=== PATIENT | male | born 1955 | race African-American/Black ===

== ENCOUNTER 2018-07-08 13:54 | Inpatient (IN) | payer MEDICAID ==
[~2018-07-08] VITALS: Ht 177.8 cm; Wt 89.8 kg
--- NOTE | 2018-07-08 16:34 | NUR ---
PT ARRIVED TO FLOOR VIA EMS, ORIENTED TO ROOM, CL IN REACH
[2018-07-08 17:36] LABS: BASOPHILS 0 % (0-2); EOSINOPHILS 0 % (0-7); HEMATOCRIT 38.7 % (42.0-54.0); HEMOGLOBIN 12.6 g/dL (13.5-17.5); IMMATURE GRANULOCYTES 0.3 % (0-5); MCH 32.8 pg (26.0-34.0); MCHC 32.6 g/dL (31.0-37.0); MCV 100.8 fL (80.0-100.0); NEUTROPHILS 91.7 % (40-80); PLATELET COUNT 199 10x3/uL (130-400); RBC 3.84 10x6/uL (4.20-6.10); WBC 6.9 10x3/uL (4.8-10.8)
[2018-07-08 17:55] LABS: ALBUMIN 3.2 g/dL (3.4-5.0); ANION GAP 12.4 mmol/L (8-16); BILIRUBIN - TOTAL 0.36 mg/dL (0.2-1.3); CALCIUM 8.7 mg/dL (8.5-10.1); CARBON DIOXIDE 26.7 mmol/L (21.0-32.0); CREATININE - SERUM 1.1 mg/dL (0.6-1.3); POTASSIUM - SERUM 4.1 mmol/L (3.5-5.1); PROTEIN - SERUM 7.6 g/dL (6.4-8.2)
[2018-07-08 18:04] LABS: CKMB 0.7 U/L (0.0-3.6); CREATINE KINASE 109 UL (21-232)
[2018-07-08 18:06] LABS: TROPONIN-I < 0.017 ng/mL (0.000-0.060)
[2018-07-08 20:48] VITALS: BP 159/100
[2018-07-08 23:47] LABS: CKMB 1.1 U/L (0.0-3.6); CREATINE KINASE 106 UL (21-232); TROPONIN-I < 0.017 ng/mL (0.000-0.060)
[2018-07-09 00:34] VITALS: BP 170/103
--- NOTE | 2018-07-09 02:31 | NUR ---
EYES CLOSED RESPIRATIONS WITH EASE AND UNLABORED. SR UP X2 CALL LIGHT WITHIN REACH.
[2018-07-09 04:46] VITALS: BP 164/98
[2018-07-09 05:27] VITALS: BP 159/100; BMI 28.4
[2018-07-09 06:53] LABS: BASOPHILS 0 % (0-2); EOSINOPHILS 0 % (0-7); HEMATOCRIT 37.7 % (42.0-54.0); HEMOGLOBIN 12.1 g/dL (13.5-17.5); IMMATURE GRANULOCYTES 0.4 % (0-5); LYMPHOCYTES 7.7 % (15-50); MCH 32.4 pg (26.0-34.0); MCHC 32.1 g/dL (31.0-37.0); MCV 101.1 fL (80.0-100.0); MEAN PLATELET VOLUME 10.3 fL (7.4-10.4); MONOCYTES 11.3 % (2-11); NEUTROPHILS 80.6 % (40-80); PLATELET COUNT 205 10x3/uL (130-400); RBC 3.73 10x6/uL (4.20-6.10); RDW 11.9 % (11.5-14.5)
[2018-07-09 07:10] LABS: ALBUMIN 3.2 g/dL (3.4-5.0); ALKALINE PHOSPHATASE 126 U/L (46-116); ALT (SGPT) 29 U/L (10-68); BILIRUBIN - TOTAL 0.34 mg/dL (0.2-1.3); CALC OSMOLALITY 287 mosm/kg (275-300); CALCIUM 8.7 mg/dL (8.5-10.1); CARBON DIOXIDE 26.5 mmol/L (21.0-32.0); CHLORIDE - SERUM 104 mmol/L (98-107); CKMB 1.8 U/L (0.0-3.6); CREATINE KINASE 120 UL (21-232); CREATININE - SERUM 0.9 mg/dL (0.6-1.3); GLUCOSE 236 mg/dL (74-106); POTASSIUM - SERUM 4.1 mmol/L (3.5-5.1); PROTEIN - SERUM 6.9 g/dL (6.4-8.2); SODIUM 140 mmol/L (136-145); TROPONIN-I < 0.017 ng/mL (0.000-0.060); UREA NITROGEN 16 mg/dL (7-18); eGFR NON AFRICAN AMERICAN > 90 mL/min (90-120)
[2018-07-09 07:11] LABS: WBC 12.2 10x3/uL (4.8-10.8)
[2018-07-09 08:47] LABS: APPEARANCE CLEAR (CLEAR); BILIRUBIN NEGATIVE (NEGATIVE); COLOR YELLOW (YELLOW); GLUCOSE 1000 mg/dL (NEGATIVE); KETONE NEGATIVE (NEGATIVE); NITRITE NEGATIVE (NEGATIVE); PROTEIN NEGATIVE (NEGATIVE); UROBILINOGEN NORMAL (NORMAL)
[2018-07-09 09:13] VITALS: BP 163/96
[2018-07-09 15:16] VITALS: BP 141/92
[2018-07-09 17:14] VITALS: Ht 177.8 cm; Wt 89.8 kg
[2018-07-09 20:00] VITALS: BP 165/90
--- NOTE | 2018-07-09 21:00 | NUR ---
SITTING UP IN BED, NO SIGNS OF DISTRESS. ALERT AND ORIENTED. IV LEFT AC INFUSING 1/2NS @ 50. PT HAS PRODUCTIVE COUGH, STATES HE IS COUGHING UP YELLOW AND WHITE PHLEM. PT STATES PAIN 9/10 IN BACK AND RIGHT SHOULDER. GIVEN MORPHINE ORDERS. SCDS ON. NO OTHER NEEDS OR COMPLAINTS AT THIS TIME. CL IN REACH, WILL CONTINUE TO MONITOR
[2018-07-10] VITALS (14 sets, daily range): BP systolic 130–160; BP diastolic 80–99
[2018-07-10 05:04] LABS: BASOPHILS 0.1 % (0-2); EOSINOPHILS 0 % (0-7); HEMATOCRIT 38.4 % (42.0-54.0); HEMOGLOBIN 12.6 g/dL (13.5-17.5); IMMATURE GRANULOCYTES 0.5 % (0-5); LYMPHOCYTES 11.4 % (15-50); MCH 32.8 pg (26.0-34.0); MCHC 32.8 g/dL (31.0-37.0); MEAN PLATELET VOLUME 10.1 fL (7.4-10.4); MONOCYTES 12.3 % (2-11); NEUTROPHILS 75.7 % (40-80); PLATELET COUNT 169 10x3/uL (130-400); RBC 3.84 10x6/uL (4.20-6.10); RDW 12.3 % (11.5-14.5)
[2018-07-10 05:11] LABS: WBC 7.8 10x3/uL (4.8-10.8)
[2018-07-10 05:27] LABS: ALBUMIN 3.3 g/dL (3.4-5.0); ALKALINE PHOSPHATASE 112 U/L (46-116); ALT (SGPT) 30 U/L (10-68); BILIRUBIN - TOTAL 0.63 mg/dL (0.2-1.3); CALCIUM 8.2 mg/dL (8.5-10.1); CARBON DIOXIDE 28.2 mmol/L (21.0-32.0); CHLORIDE - SERUM 99 mmol/L (98-107); CREATININE - SERUM 0.9 mg/dL (0.6-1.3); POTASSIUM - SERUM 3.6 mmol/L (3.5-5.1); PROTEIN - SERUM 7.4 g/dL (6.4-8.2); SODIUM 136 mmol/L (136-145); UREA NITROGEN 14 mg/dL (7-18); eGFR NON AFRICAN AMERICAN > 90 mL/min (90-120)
[2018-07-10 05:29] LABS: CALC OSMOLALITY 275 mosm/kg (275-300); GLUCOSE 153 mg/dL (74-106)
--- NOTE | 2018-07-10 07:14 | NUR ---
PT IS NOT ROOM AT THIS TIME. PER VP SITE NURSE PT IS AT SURGERY.
--- NOTE | 2018-07-10 10:00 | NUR ---
PT RETURNED TO ROOM VIA BED TRANSPORTED BY RECOVERY STAFF. DRESSING TO LOWER BACK WITH SMALL AMOUNT OF RED DRAINAGE NOTED. WILL MONITOR. PT IS RESTING IN BED WITH EYES OPEN. RESPIRATIONS ARE EVEN AND UNLABORED. O2 @ 7L VIA HIGH FLOW NC. BED IS IN THE LOWEST POSITION. CALL LIGHT AND BEDSIDE TABLEA RE WITHIN REACH. WILL CONT TO MONITOR
--- NOTE | 2018-07-10 10:17 | NUR ---
PT REQUESTS TO WAIT "FOR A LITTLE BIT" BEFORE DOING MORNING MEDICATIONS. PT INFORMED OF MEDICATION TYPES AND PT VERBALIZES UNDERSTANDING AND CONT TO REQUEST TO WAIT FOR MEDICATION ADMINISTRATION. BED IS IN THE LOWEST POSITION. CALL LIGHT AND BEDSIDE TABLE ARE WITHIN REACH. WILL CONT TO MONITOR.
--- NOTE | 2018-07-10 10:37 | MORECARE ---
CASE MANAGEMENT DISCHARGE SUMMARY PATIENT: ZELDA MANCERA UNIT: [id number] ADM DATE: 07/08/18 AGE: 62 : 59 SEX: M ROOM/BED: D.2215 AUTHOR: ANGELES TAO PHYSICIAN: REFERRING PHYSICIAN: SHILPA BUENROSTRO MD DATE OF SERVICE: 07/10/18 Discharge Plan Patient Name: ZELDA MANCERA [facility] [facility] 1955 Planned Disposition: Home Anticipated Discharge Date: Discharge Date: Expected LOS: Initial Reviewer: [email or web address] Initial Review Date: 07/08/2018 Generated: 07/10/18 11:37 am Patient Name: ZELDA MANCERA Page [phone] at 1037 All edits/amendments must be made on the electronic document DICTATION DATE: 07/10/18 1037 TOOL PROGRAMMER: CATHY 07/10/18 1037 RPT#: [id number] DC DATE: STATUS: ADM IN [facility] [address] [place] [address] END OF REPORT
--- NOTE | 2018-07-10 10:45 | MORECARE ---
CASE MANAGEMENT DISCHARGE SUMMARY PATIENT: BONI MANCERA UNIT: [id number] ADM DATE: 07/08/18 AGE: 62 : 59 SEX: M ROOM/BED: D.2215 AUTHOR: DINHDOC PHYSICIAN: REFERRING PHYSICIAN: SHILPA BUENROSTRO MD DATE OF SERVICE: 07/10/18 Discharge Plan Patient Name: BONI MANCERA Facility: [facility]:[place] : 1955 Planned Disposition: Home Anticipated Discharge Date: Discharge Date: Expected LOS: Initial Reviewer: [email or web address] Initial Review Date: 07/08/2018 Generated: 07/10/18 11:45 am Comments DCP- Discharge Planning Updated by [email or web address]: Kierra Rachel on 07/10/18 9:[address] Patient Name: BONI MANCERA Admission Status: Urgent Accout number: [id number] Admission Date: 07-08-2018 : 1955 Admission Diagnosis: Attending: SHILPA BUENROSTRO Current LOS: 2 Anticipated DC Date: Planned Disposition: Home Primary Insurance: MEDICAID [place] Discharge Planning Comments: CM met with patient to assess discharge planning needs. He stated that he lives with his brother in [place] where he plans to return at discharge. He is independent with his care at home. He does not use any DME and stated his home is safe to return. His brother will be his feedmobile driver home. There are 5 steps to enter in his home. He denies any HH or community needs and does not think he will need anything at DC. CM will continue to follow and assist with DC planning as needed Instrumentation Engineer: Kierra Rachel DCPIA - Discharge Planning Initial Assessment Updated by [email or web address]: Kierra Rachel on 07/10/18 10:38 am * Is the patient Alert and Oriented? Yes * How many steps to enter\exit or inside your home? * PCP Storm * Pharmacy [facility] in [place] * Preadmission Environment Home with Family * ADLs Independent * Equipment None * List name and contact numbers for known caregivers / representatives who currently or will assist patient after discharge: Boni (son) [phone] * Verbal permission to speak to the caregivers and representatives has been obtained from the patient. N/A * Community resources currently utilized None * Additional services required to return to the preadmission environment? No * Can the patient safely return to the preadmission environment? Yes * Has this patient been hospitalized within the prior 30 days at any hospital? No Last DP export: 07/10/18 9:37 am Patient Name: BONI MANCERA Page [phone] at 1045 All edits/amendments must be made on the electronic document DICTATION DATE: 07/10/18 1045 CEMENTER MACHINE JOINER: CATHY 07/10/18 1045 RPT#: [id number] DC DATE: STATUS: ADM IN [facility] [address] [place] [address] END OF REPORT
--- NOTE | 2018-07-10 17:06 | NUR ---
Rehab Note- Acute Inpatient Rehab prescreen order received. The patient has Medicaid and does not have Inpatient Acute Rehab benefits. Thank you for this referral! Monica Shukla RN Clinical Liaison, [facility] Rehab
--- NOTE | 2018-07-10 17:45 | NUR ---
PT INFORMED OF I,PORTANCE OF STAYING ON FLOOR TO BE CLOSELY MONITORED AND EDUCATED ON O2 SATURATIONS AND LEVEL OF O2 RECEIVING AND BECOMING HYPOXIC. PT VERBALIZES UNDERSTANDING BUT STATES THAT HE IS "GOING OUTSIDE ONE WAY OR ANOTHER". PT SIGNED RELEASE OF RESPONSIBILITY WAIVER. WAIVER PLACED IN PT CHART.
--- NOTE | 2018-07-10 19:00 | NUR ---
REPORT RECEIVED AND CARE OF PT ASSUMED. PT LYING IN LOW MILLER'S POSITION WATCHING TV. IV IN LEFT AC PATENT WITH 1/2 NS INFUSING AT 50 ML / HR. DRESSING ON LOWER BACK CLEAN AND DRY. O2 IN USE VIA NC AT 7L. WILL MONITOR FOR NEEDS.
--- NOTE | 2018-07-10 20:38 | NUR ---
HS MEDICATIONS GIVEN. FSBGS 214 THIS CHECK REQUIRING COVERAGE WITH 4 UNITS OF INSULIN PER SLIDING SCALE.
--- NOTE | 2018-07-10 20:45 | NUR ---
GAVE HS SNACK: CHICKEN NOODLE SOUP AND CRACKERS, AND ORANGE SHERBET.
--- NOTE | 2018-07-10 22:15 | NUR ---
TOOK PT'S DIRTY CLOTHES TO REHAB TO WASH PER HIS REQUEST.
--- NOTE | 2018-07-11 00:03 | NUR ---
GAVE MORPHINE 1 MG IVP PER PT REQUEST FOR INCISIONAL / BACK PAIN. WILL MONITOR FOR EFFECTIVENESS. SIDE RAILS UP X2 FOR SAFETY.
--- NOTE | 2018-07-11 00:10 | NUR ---
GAVE PT TURKEY SANDWICH AND DIET SODA PER REQUEST.
--- NOTE | 2018-07-11 01:03 | NUR ---
CLOTHES RETURNED TO ROOM FROM LAUNDRY...FOLDED AND IN A BELONGINGS BAG. PT AWARE AND KNOWS WHERE THEY ARE.
[2018-07-11 03:38] VITALS: BP 143/90
[2018-07-11 06:19] LABS: BASOPHILS 0.2 % (0-2); EOSINOPHILS 0.2 % (0-7); HEMATOCRIT 35.3 % (42.0-54.0); HEMOGLOBIN 11.1 g/dL (13.5-17.5); IMMATURE GRANULOCYTES 0.2 % (0-5); LYMPHOCYTES 15.4 % (15-50); MCH 32.4 pg (26.0-34.0); MCHC 31.4 g/dL (31.0-37.0); MEAN PLATELET VOLUME 10.2 fL (7.4-10.4); PLATELET COUNT 152 10x3/uL (130-400); RBC 3.43 10x6/uL (4.20-6.10); RDW 12.3 % (11.5-14.5); WBC 6.6 10x3/uL (4.8-10.8)
[2018-07-11 06:21] LABS: MCV 102.9 fL (80.0-100.0)
[2018-07-11 06:47] LABS: ALBUMIN 2.8 g/dL (3.4-5.0); ALKALINE PHOSPHATASE 96 U/L (46-116); ALT (SGPT) 31 U/L (10-68); BILIRUBIN - TOTAL 0.48 mg/dL (0.2-1.3); CALC OSMOLALITY 279 mosm/kg (275-300); CALCIUM 7.9 mg/dL (8.5-10.1); CARBON DIOXIDE 28.8 mmol/L (21.0-32.0); CHLORIDE - SERUM 102 mmol/L (98-107); CREATININE - SERUM 0.8 mg/dL (0.6-1.3); GLUCOSE 152 mg/dL (74-106); PROTEIN - SERUM 6.3 g/dL (6.4-8.2); SODIUM 138 mmol/L (136-145); UREA NITROGEN 14 mg/dL (7-18); eGFR NON AFRICAN AMERICAN > 90 mL/min (90-120)
--- NOTE | 2018-07-11 07:38 | NUR ---
SITTING UP IN BED, HOB AT 80 DEGREES, EVEN UNLABORED BREATHING, 7LPM HIGH FLOW, LEFT AC PATENT, 1/2NS AT 50ML/HR. SCD'S ON AND IN OPERATION, DENIES ANY CURRENT NEEDS OR DISCOMFORTS, BED LOWERED AND LOCKED, CALL LIGHT WITHIN REACH. CPOC
[2018-07-11 09:07] VITALS: BP 138/88
--- NOTE | 2018-07-11 09:53 | NUR ---
PATIENT STATES PAIN IS BEING UNCONTROLLED, ADMINISTERED PRN MORPHINE VIA IV, BUT STATES NO RELIEF. PT STATES HE TAKES HYDROCODONE 10 AT HOME AND IT CONTROLS HIS PAIN. DENIES ANY OTHER NEEDS. BED LOWERE AND LOCKED, CALL LIGHT WITHIN REACH. CPOC
--- NOTE | 2018-07-11 10:24 | NUR ---
PRN NORCO 10/325 ADMINISTERED FOR PAIN LEVEL 910. SPOKE WITH DR. DIXON, IF PT PAIN BECOMES CONTROLLED WE WILL WORK ON A POSSIBLE DISCHARGE. NO BOWEL MOVEMENT SINCE LAST SATURDAY, RECIEVING STOOL SOFTNER DAILY, ADMINISTERED MIRALAX PER ORDER. PT STATED NO TO DO SUPP UNTIL LATER. WILL CONTINUE TO MONTIOR. DENIES ANY OTHER NEEDS OR DISCOMFORTS, BED LOWERED AND LOCKED, CALL LIGHT WITHIN REACH. CPOC
--- NOTE | 2018-07-11 12:31 | OP ---
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 PROCEDURES: Lumbar laminotomy, medial facetectomy and foraminotomy L4-L5 on the right with discectomy. SURGEON: Fabiola Mead MD. DESCRIPTION OF TECHNIQUE: After induction of general endotracheal anesthesia, the patient was rolled prone on a Glen frame. Lumbar spine was prepped and draped in usual sterile fashion. Fluoroscopic x-ray and spinal needle localized the L4-L5 interspace on the right side. After infiltration of 1:100,000 epinephrine and 1% lidocaine, a stab incision was created with a #11 blade. Series of dilators was used to advance a METRx retractor at the L4-L5 interspace on the right side. Level was confirmed with fluoroscopic x-ray. Laminotomy, medial facetectomy, and foraminotomy were carried out at L4-L5 on the right under microscopic illumination. Hypertrophied ligamentum flavum was removed with Cloward rongeurs. Following this, the L4 and L5 nerve roots were identified well. There was an obvious free fragment disc herniation compressing the right L5 nerve root. This was removed in a piecemeal fashion with pituitary rongeurs. The disc material was removed from the disc space. Following this, the L4 and L5 nerve roots were completely decompressed. Meticulous hemostasis was maintained throughout the wound. The METRx retractor was removed. The fascia was closed with 2-0 Vicryl suture, the subdermal layer was closed with 3-0 Vicryl suture. The skin was closed with funmilayo. A sterile dressing was applied to the wound. The patient was awakened in good condition and taken to recovery. All counts were reported as correct. Estimated blood loss was minimal. TRANSINT:[id number] Voice Confirmation ID: [id number] DOCUMENT ID: [id number] FABIOLA MEAD MD at 1231 CC: [id number] DICTATION DATE: 07/11/18 1040 GREENSMAN: 07/11/18 1211 ADM IN [address] [address]
[2018-07-11 13:53] VITALS: BP 126/86
[2018-07-11 16:00] VITALS: BP 163/99
--- NOTE | 2018-07-11 19:00 | NUR ---
BEDSIDE SHIFT REPORT RECEIVED AND CARE OF PT ASSUMED. PT LYING IN LOW MILLER'S POSITION WATCHING TV. IV IN LEFT FA PATENT WITH 1/2 NS INFUISNG AT 50 ML / HR. IV IN LEFT AC SALINE LOCKED. O2 IN USE VIA HI FLOW NC AT 6L. WILL MONITOR FOR NEEDS. CALL LIGHT WITHIN REACH.
--- NOTE | 2018-07-11 19:30 | NUR ---
RECEIVED IN REPORT THAT PT REFUSED TO HAVE IN AND OUT CATH PERFORMED FOR ORDERED URINE CULTURE.
[2018-07-11 19:34] VITALS: BP 148/98
--- NOTE | 2018-07-11 20:15 | NUR ---
GAVE 240 ML OF PRUNE JUICE TO AID IN [place] OF CONSTIPATION.
--- NOTE | 2018-07-11 20:54 | NUR ---
HS MEDICATIONS GIVEN. FSBS 128 THIS CHECK REQUIRING NO COVERAGE VIA SLIDING SCALE.
[2018-07-11 23:35] VITALS: BP 133/78
--- NOTE | 2018-07-11 23:50 | NUR ---
GAVE NORCO 10 FOR PAIN AND ELEVATED TEMP. ENCOURAGED INCREASED USE OF INCENTIVE INSPIROMETER. WILL CONTINUE TO MONITOR FOR NEEDS.
[2018-07-12 04:00] VITALS: BP 137/87
[2018-07-12 06:18] LABS: BASOPHILS 0.2 % (0-2); EOSINOPHILS 0.2 % (0-7); HEMATOCRIT 36.1 % (42.0-54.0); HEMOGLOBIN 11.5 g/dL (13.5-17.5); IMMATURE GRANULOCYTES 0.4 % (0-5); LYMPHOCYTES 15.7 % (15-50); MCH 32.7 pg (26.0-34.0); MCHC 31.9 g/dL (31.0-37.0); MCV 102.6 fL (80.0-100.0); MEAN PLATELET VOLUME 10.3 fL (7.4-10.4); MONOCYTES 15.5 % (2-11); PLATELET COUNT 149 10x3/uL (130-400); RBC 3.52 10x6/uL (4.20-6.10); RDW 12.3 % (11.5-14.5); WBC 5.5 10x3/uL (4.8-10.8)
[2018-07-12 07:05] LABS: ALBUMIN 2.8 g/dL (3.4-5.0); ALKALINE PHOSPHATASE 99 U/L (46-116); ALT (SGPT) 33 U/L (10-68); BILIRUBIN - TOTAL 0.75 mg/dL (0.2-1.3); CALC OSMOLALITY 267 mosm/kg (275-300); CARBON DIOXIDE 30.2 mmol/L (21.0-32.0); CHLORIDE - SERUM 97 mmol/L (98-107); CREATININE - SERUM 0.8 mg/dL (0.6-1.3); GLUCOSE 121 mg/dL (74-106); POTASSIUM - SERUM 3.9 mmol/L (3.5-5.1); PROTEIN - SERUM 6.7 g/dL (6.4-8.2); SODIUM 134 mmol/L (136-145); eGFR NON AFRICAN AMERICAN > 90 mL/min (90-120)
[2018-07-12 07:11] LABS: UREA NITROGEN 10 mg/dL (7-18)
--- NOTE | 2018-07-12 07:50 | NUR ---
AWAKE AND ALERT, SHALLOW SHORT BREATHING, DENIES SOB, 02 PRESNT AT 3LPM VIA NC, DENIES ANY CURRENT NEEDS, BED LOWERED AND LOCKED, CALL LIGHT WITHIN REACH. CPOC
[2018-07-12 08:39] VITALS: BP 126/83
--- NOTE | 2018-07-12 10:42 | NUR ---
PATIENT RESTING IN BED, DENIES NEEDS AT THIS TIME, CL IN REACH
[2018-07-12 12:00] VITALS: BP 123/63
--- NOTE | 2018-07-12 14:03 | NUR ---
URINE SPECIMEN COLLECTED WITH IN AND OUT CATH, TOLERATED PROCEDURE WELL, DENIES ANY NEEDS OR DISCOMFORTS, BED LOWERED AND LOCKED, CALL LIGHT WITHIN REACH. CPOC
[2018-07-12 16:00] VITALS: BP 116/74
[2018-07-12 17:39] VITALS: BP 162/86
--- NOTE | 2018-07-12 18:16 | NUR ---
APPLIED HEAT PACK TO RIGHT SHOULDER D/T C/O DISCOMFORT, DENIES ANY OTHER NEEDS OR DISCOMFORTS, BED LOWERED AND LOCKED, CALL LIGHT WITHIN REACH. CPOC
--- NOTE | 2018-07-12 18:45 | NUR ---
SITTING UP RIGHT IN BED, SHORT SHALLOW BREATHS, CONTINUES ON 3LPM VIA NC, DENIES ANY CURRENT NEEDS OR DISCOMFORTS, BED LOWERED AND LOCKED CALL LIGHT WITHIN REACH. CPOC
--- NOTE | 2018-07-12 19:10 | NUR ---
BEDSIDE SHIFT REPORT RECEIVED AND CARE OF PT ASSUMED. PT LYING IN HIGH MILLER'S POSITION WITH EYES CLOSED. IV IN LEFT FA PATENT WITH 1/2 NS INFUSING AT 50 ML / HR. WILL MONITOR FOR NEEDS.
[2018-07-12 20:00] VITALS: BP 121/80
--- NOTE | 2018-07-12 20:22 | NUR ---
HS MEDICAITONS GIVEN TO INCLUDE NORCO 10/325 PO PER REQUEST FOR PAIN. FSBS THIS CHECK IS 159 REQUIRING COVERAGE WITH 2 UNITS OF INSULIN PER SLIDING SCALE. WILL CONTINUE TO MONITOR FOR NEEDS. CALL LIGHT WITHIN REACH.
--- NOTE | 2018-07-12 21:00 | NUR ---
PT HAS X2 DESSERTS FROM DINNER TRAY ON BEDSIDE TABLE FOR HS SNACK.
[2018-07-13] VITALS: BP 121/76
[2018-07-13 04:00] VITALS: BP 126/69
[2018-07-13 05:53] LABS: BASOPHILS 0.2 % (0-2); EOSINOPHILS 0.6 % (0-7); HEMATOCRIT 34.4 % (42.0-54.0); HEMOGLOBIN 10.8 g/dL (13.5-17.5); IMMATURE GRANULOCYTES 0.4 % (0-5); LYMPHOCYTES 24.3 % (15-50); MCH 32.1 pg (26.0-34.0); MCHC 31.4 g/dL (31.0-37.0); MCV 102.4 fL (80.0-100.0); MONOCYTES 17.4 % (2-11); NEUTROPHILS 57.1 % (40-80); PLATELET COUNT 145 10x3/uL (130-400); RBC 3.36 10x6/uL (4.20-6.10); RDW 12.2 % (11.5-14.5); WBC 5.3 10x3/uL (4.8-10.8)
[2018-07-13 06:36] LABS: ALBUMIN 2.5 g/dL (3.4-5.0); ALKALINE PHOSPHATASE 91 U/L (46-116); ALT (SGPT) 31 U/L (10-68); BILIRUBIN - TOTAL 0.57 mg/dL (0.2-1.3); CALC OSMOLALITY 271 mosm/kg (275-300); CALCIUM 7.8 mg/dL (8.5-10.1); CARBON DIOXIDE 29.9 mmol/L (21.0-32.0); CHLORIDE - SERUM 97 mmol/L (98-107); CREATININE - SERUM 0.8 mg/dL (0.6-1.3); GLUCOSE 162 mg/dL (74-106); POTASSIUM - SERUM 3.9 mmol/L (3.5-5.1); PROTEIN - SERUM 6.3 g/dL (6.4-8.2); SODIUM 134 mmol/L (136-145); eGFR NON AFRICAN AMERICAN > 90 mL/min (90-120)
[2018-07-13 06:37] LABS: UREA NITROGEN 13 mg/dL (7-18)
[2018-07-13 07:55] VITALS: BP 139/84
--- NOTE | 2018-07-13 07:59 | NUR ---
SITTING UP RIGHT, 02 PRESENT AT 3LPM, EVEN UNLABORED BREATHING, PAIN OF 9/10 IN RIGHT SHOULDER, DRESSING CLEAN AND DRY AND INTACT ON LUMBAR SPINE, DENIES ANY CURRENT NEEDS OR DISCOMFORTS, BED LOWERED AND LOCKED, CALL LIGHT WITHIN REACH. CPOC
--- NOTE | 2018-07-13 08:40 | NUR ---
PATIENT RESTING IN BED, DENIES NEEDS, CL IN REACH
--- NOTE | 2018-07-13 09:56 | NUR ---
IV IN LEFT AC AND LEFT FOREARM INFILTRATED. REMOVED BOTH IVS, CATHETER TIP INTACT X2. BANDAGE ON LOWER BACK REMOVED AND REPLACE, INCISION SITE, CLEAN, NO DRAINAGE, NO REDNESS, NO SWELLING, RECIVED FULL SHOWER, LINEN CHANGED, GOWN CHANGED, BED LOWERED AND LOCKED, CALL LIGHT WITHIN REACH. CPOC
--- NOTE | 2018-07-13 11:26 | NUR ---
PATIENT WALKED DOWNSTAIRS WITH A FRIEND, WHEN HE RETURNED HE COMPLAINED ABOUT COMPLETE NUMBESS IN RIGHT ARM, CALLED DR. DIXON, HE HAS ALREADY SPOKEN WITH PT IN REGARDS TO FIXING THE ISSUES WITH HIS ARM AT A LATER DATE, HE IS OKAY WITH PATIENT DISCHARGING HOME FROM A SURGICAL STAND POINT.
[2018-07-13 13:00] VITALS: BP 110/78
--- NOTE | 2018-07-13 14:41 | NUR ---
IV RESTARTED IN RIGHT FOREARM WITH 22 G, 1ST ATTEMPT, DENIES ANY DISCOMFORT TO SIGHT, BED LOWERED AND LOCKED, CALL LIGHT WITHIN REACH. CPOC
--- NOTE | 2018-07-13 18:18 | NUR ---
ADMINISTERED 20MG SUPP D/T NO BM SINCE LAST SATURDAY, OFFERED THE TAP WATER ENEMA AND HE DECIDED HE'D RATHER TRY THE SUPP. 3LPM O2 VIA NC, EVEN UNLABORED BREATHING, DENIES ANY CURRENT DISCOMFORTS OR NEEDS, BED LOWERED AND LOCKED CALL LIGHT WITHIN REACH. CPOC
--- NOTE | 2018-07-13 19:00 | NUR ---
REPORT RECEIVED AND CARE OF PT ASSUMED. PT UP AMBULATING IN THE HALLWAY AT THIS TIME. IV IN RIGHT FA SALINE LOCKED. WILL MONITOR FOR NEEDS.
[2018-07-13 20:00] VITALS: BP 116/64
--- NOTE | 2018-07-13 20:33 | NUR ---
HS MEDICATIONS GIVEN. FSBS 156 THIS CHECK REQUIRING NO COVERAGE PER SLIDING SCALE. ADDED NORCO 10 PO TO HS MEDICAITONS FOR C/O PAIN AT LEVEL 7/10. WILL MONITOR FOR EFFECTIVENESS. CALL LIGHT WITHIN REACH.
--- NOTE | 2018-07-14 03:15 | NUR ---
GAVE NORCO 10/325 PO PER PT REQUEST FOR PAIN, PER PRN ORDERS. WILL MONITOR FOR EFFECTIVENESS.
[2018-07-14 04:00] VITALS: BP 154/84
--- NOTE | 2018-07-14 04:00 | NUR ---
TURNED OFF IV FLUIDS PER PT REQUEST.
[2018-07-14 04:49] LABS: EOSINOPHILS 2.2 % (0-7); HEMATOCRIT 33.9 % (42.0-54.0); IMMATURE GRANULOCYTES 0.8 % (0-5); LYMPHOCYTES 26.5 % (15-50); MCH 32.8 pg (26.0-34.0); MCHC 32.4 g/dL (31.0-37.0); MCV 101.2 fL (80.0-100.0); MEAN PLATELET VOLUME 10.1 fL (7.4-10.4); MONOCYTES 18.1 % (2-11); NEUTROPHILS 51.4 % (40-80); PLATELET COUNT 136 10x3/uL (130-400); RBC 3.35 10x6/uL (4.20-6.10); WBC 5.1 10x3/uL (4.8-10.8)
[2018-07-14 05:12] LABS: ALBUMIN 2.5 g/dL (3.4-5.0); ALKALINE PHOSPHATASE 94 U/L (46-116); ALT (SGPT) 34 U/L (10-68); BILIRUBIN - TOTAL 0.66 mg/dL (0.2-1.3); CALC OSMOLALITY 274 mosm/kg (275-300); CALCIUM 8.1 mg/dL (8.5-10.1); CARBON DIOXIDE 31.2 mmol/L (21.0-32.0); CHLORIDE - SERUM 101 mmol/L (98-107); CREATININE - SERUM 0.8 mg/dL (0.6-1.3); GLUCOSE 135 mg/dL (74-106); POTASSIUM - SERUM 3.8 mmol/L (3.5-5.1); PROTEIN - SERUM 6.4 g/dL (6.4-8.2); SODIUM 137 mmol/L (136-145); UREA NITROGEN 11 mg/dL (7-18); eGFR NON AFRICAN AMERICAN > 90 mL/min (90-120)
[2018-07-14] MEDS ORDERED: MIRALAX17 GM PO (10:22)
[2018-07-14] MEDS ORDERED: NORCO-10 PO (10:22)
[2018-07-14] MEDS ORDERED: GLUCOPHAGE500 MG PO (10:23)
--- NOTE | 2018-07-14 11:49 | MORECARE ---
CASE MANAGEMENT DISCHARGE SUMMARY PATIENT: BONI MANCERA UNIT: [id number] ADM DATE: 07/08/18 AGE: 62 : 59 SEX: M ROOM/BED: D.2215 AUTHOR: DINHDOC PHYSICIAN: REFERRING PHYSICIAN: SHILPA BUENROSTRO MD DATE OF SERVICE: 07/14/18 Discharge Plan Patient Name: BONI MANCERA Facility: [facility]:[place] : 1955 Planned Disposition: Home Anticipated Discharge Date: Discharge Date: Expected LOS: Initial Reviewer: [email or web address] Initial Review Date: 07/08/2018 Generated: 07/14/18 12:49 pm Comments DCP- Discharge Planning Updated by [email or web address]: Kierra Rachel on 07/14/18 10:[address] Gave patient a Contour Next Blood Glucose monitoring System. No other needs identified. DCP- Discharge Planning Updated by [email or web address]: Kierra Rachel on 07/10/18 9:[address] Patient Name: BONI MANCERA Admission Status: Urgent Accout number: [id number] Admission Date: 07-08-2018 : 1955 Admission Diagnosis: Attending: SHILPA BUENROSTRO Current LOS: 2 Anticipated DC Date: Planned Disposition: Home Primary Insurance: MEDICAID [place] Discharge Planning Comments: CM met with patient to assess discharge planning needs. He stated that he lives with his brother in [place] where he plans to return at discharge. He is independent with his care at home. He does not use any DME and stated his home is safe to return. His brother will be his personal driver home. There are 5 steps to enter in his home. He denies any HH or community needs and does not think he will need anything at DC. CM will continue to follow and assist with DC planning as needed Reach Truck Operator: Kierra Rachel DCPIA - Discharge Planning Initial Assessment Updated by [email or web address]: Kierra Rachel on 07/10/18 10:38 am * Is the patient Alert and Oriented? Yes * How many steps to enter\exit or inside your home? * PCP [place] * Pharmacy [facility] in [place] * Preadmission Environment Home with Family * ADLs Independent * Equipment None * List name and contact numbers for known caregivers / representatives who currently or will assist patient after discharge: Boni (son) [phone] * Verbal permission to speak to the caregivers and representatives has been obtained from the patient. N/A * Community resources currently utilized None * Additional services required to return to the preadmission environment? No * Can the patient safely return to the preadmission environment? Yes * Has this patient been hospitalized within the prior 30 days at any hospital? No Last DP export: 07/10/18 9:45 am Patient Name: BONI MANCERA Page [phone] at 1149 All edits/amendments must be made on the electronic document DICTATION DATE: 07/14/181147 CARD DEALER: CATHY 07/14/181147 RPT#: [id number] DC DATE: STATUS: ADM IN [facility] [address] [place] [address] END OF REPORT
[2018-07-14 12:08] VITALS: BP 187/81
--- NOTE | 2018-07-14 13:23 | NUR ---
IV REMOVED FROM LEFT FA WITH NO REDNESS OR EDEMA. DISCHARGE INSTRUCTIONS GIVEN INCLUDING NEW GLUCOMETER AND MEDICATIONS, PATIENT AMBULATED WITH FRIEND TO PRIVATE CAR
--- NOTE | 2018-07-18 14:47 | MORECARE ---
CASE MANAGEMENT DISCHARGE SUMMARY PATIENT: BONI MANCERA UNIT: [id number] ADM DATE: 07/08/18 AGE: 62 : 59 SEX: M ROOM/BED: D.2215 AUTHOR: DINHDOC PHYSICIAN: REFERRING PHYSICIAN: SHILPA BUENROSTRO MD DATE OF SERVICE: 07/18/18 Discharge Plan Patient Name: BONI MANCERA Facility: [facility]:[place] : 1955 Planned Disposition: Home Anticipated Discharge Date: Discharge Date: 07/14/2018 Expected LOS: 0 Initial Reviewer: [email or web address] Initial Review Date: 07/08/2018 Generated: 07/18/18 3:46 pm Comments DCP- Discharge Planning Updated by [email or web address]: Kierra Racehl on 07/14/18 10:[address] Gave patient a Contour Next Blood Glucose monitoring System. No other needs identified. DCP- Discharge Planning Updated by [email or web address]: Kierra Rachel on 07/10/18 9:[address] Patient Name: BONI MANCERA Admission Status: Urgent Accout number: [id number] Admission Date: 07-08-2018 : 1955 Admission Diagnosis: Attending: SHILPA BUENROSTRO Current LOS: 2 Anticipated DC Date: Planned Disposition: Home Primary Insurance: MEDICAID [place] Discharge Planning Comments: CM met with patient to assess discharge planning needs. He stated that he lives with his brother in [place] where he plans to return at discharge. He is independent with his care at home. He does not use any DME and stated his home is safe to return. His brother will be his construction driver home. There are 5 steps to enter in his home. He denies any HH or community needs and does not think he will need anything at DC. CM will continue to follow and assist with DC planning as needed It Help Desk Technician: Kierra Rachel DCPIA - Discharge Planning Initial Assessment Updated by [email or web address]: Kierra Rachel on 07/10/18 10:38 am * Is the patient Alert and Oriented? Yes * How many steps to enter\exit or inside your home? * PCP Storm * Pharmacy [facility] in [place] * Preadmission Environment Home with Family * ADLs Independent * Equipment None * List name and contact numbers for known caregivers / representatives who currently or will assist patient after discharge: Boni (son) [phone] * Verbal permission to speak to the caregivers and representatives has been obtained from the patient. N/A * Community resources currently utilized None * Additional services required to return to the preadmission environment? No * Can the patient safely return to the preadmission environment? Yes * Has this patient been hospitalized within the prior 30 days at any hospital? No Last DP export: 07/14/18 10:49 a Patient Name: BONI MANCERA Page 17675 at 1447 All edits/amendments must be made on the electronic document DICTATION DATE: 07/18/181445 COMPUTER LAB PARA PROFESSIONAL: CATHY 07/18/181445 RPT#: [id number] DC DATE:07/14/18 STATUS: DIS IN [facility] [address] [place] [address] END OF REPORT
[2018-07-30] MEDS ORDERED: HYDROCODON-ACE1 EA10 PO (14:10)
== END 2018-07-14 13:30 | disposition home or self-care (01) | DRG 516 ==
LOC: D.MS 13:54
PROVIDERS: Family Medicine; Neurological Surgery; ADMIT Internal Medicine Nephrology
PROC: 01NB0ZZ Release Lumbar Nerve, Open Approach (ICD-10-PCS; principal; 2018-07-10 07:00)
DX: M51.16 Intervertebral disc disorders with radiculopathy, lumbar region (principal); F17.213 Nicotine dependence, cigarettes, with withdrawal; E11.65 Type 2 diabetes mellitus with hyperglycemia; I10 Essential (primary) hypertension

== ENCOUNTER 2018-07-31 10:04 | Day surgery (SDC) | payer MEDICAID ==
[~2018-07-31] VITALS: Ht 179.1 cm; Wt 86.8 kg
--- NOTE | ~2018-07-31 | OP ---
PATIENT NAME: ZELDA MANCERA MEDICAL RECORD: [id number] :[birth year] LOCATION:[place] ADMISSION DATE: SURGEON: FABIOLA MEAD MD DATE OF OPERATION: 07/31/2018 PREOPERATIVE DIAGNOSES: Osteophyte formation and disc herniation at C6-7 and C7-T1 with cervical radiculopathy at C7-C8. PROCEDURE: Anterior cervical discectomy and fusion at C6-7 and C7-T1 with separate anterior cervical plate and screws, PEEK interbody cages at C6-7 and C7-T1, Celina bone stem cells, removal of osteophytes. SURGEON: Fabiola Mead MD DESCRIPTION OF TECHNIQUE: After induction of general endotracheal anesthesia, the patient was positioned supine on the operating table. The neck was prepped and draped in usual sterile fashion. Fluoroscopic x-ray and freer localized the C6-C7 interspace. A transverse skin incision was carried out from the midline to the sternocleidomastoid muscle. The platysma was divided with Bovie cautery. Using blunt and sharp dissection with Metzenbaum scissors, I proceeded in avascular plane medial to the carotid sheath. The C6-7 interspace was identified with fluoroscopic x-ray and the spinal needle. The longus colli muscles were elevated from bodies of C6, C7, and T1. A self-retaining retractor was then placed deep to the longus colli muscles. [place] distracting pins were placed by C6, C7, and T1. The disc space was incised at each and the disc material was removed with pituitary rongeurs and curettes. Osteophytes were removed anteriorly at C6-7 and C7-T1 with Adson rongeurs. Under microscope, a Midas-Winston drill was used to remove osteophytes on both sides of C6-7 and C7-T1. Posterior longitudinal ligament was removed at both levels with Cloward rongeurs. Following this, the dura was decompressed well. A PEEK interbody cage was filled with bone stem cells and placed in each interspace under distraction with [place] distracting pins. A separate anterior cervical plate and screws used to span the C6-7 and C7-T1 interspace. Self-drilling screws were placed through the holes of the plate. Locking cams were tightened down over the screw heads. Good position of the hardware was confirmed with fluoroscopic x-ray. Meticulous hemostasis was maintained throughout the wound and was irrigated with copious amounts of Ancef irrigant solution. The platysma was closed with interrupted 3-0 Vicryl suture, the subdermal layer was closed with interrupted 3-0 Vicryl suture, the skin was reapproximated with Steri-Strips and benzoin. A sterile dressing was applied to the wound. The patient was awakened in good condition, taken to recovery. All counts were reported as correct. Estimated blood loss was minimal. TRANSINT:[id number] Voice Confirmation ID: [id number] DOCUMENT ID: [id number] FABIOLA MEAD MD CC: [id number] DICTATION DATE: 08/13/18729 LEAD SUPPLY WORKER: 08/13/18 0838 [facility] [place] 08/01/[address] [address]
[~2018-07-31 10:04] MED LIST: GLUCOPHAGE500 MG PO; HYDROCODON-ACE1 EA10 PO; MIRALAX17 GM PO; NORCO-10 PO
[2018-07-31 10:20] LABS: BASOPHILS 0.6 % (0-2); EOSINOPHILS 3.7 % (0-7); HEMATOCRIT 41.3 % (42.0-54.0); HEMOGLOBIN 13.3 g/dL (13.5-17.5); IMMATURE GRANULOCYTES 0.3 % (0-5); LYMPHOCYTES 30.9 % (15-50); MCH 32.8 pg (26.0-34.0); MCHC 32.2 g/dL (31.0-37.0); MCV 101.7 fL (80.0-100.0); MEAN PLATELET VOLUME 9.6 fL (7.4-10.4); MONOCYTES 12.5 % (2-11); RBC 4.06 10x6/uL (4.20-6.10); RDW 12.1 % (11.5-14.5); WBC 6.2 10x3/uL (4.8-10.8)
[2018-07-31 10:21] LABS: PLATELET COUNT 278 10x3/uL (130-400)
[2018-07-31 10:30] LABS: APTT 33.1 SECONDS (22.8-39.4); INR 1.01 (0.85-1.17); PROTIME 12.8 SECONDS (11.6-15.0)
[2018-07-31 10:33] LABS: CALC OSMOLALITY 282 mosm/kg (275-300); CALCIUM 8.6 mg/dL (8.5-10.1); CARBON DIOXIDE 26.7 mmol/L (21.0-32.0); CHLORIDE - SERUM 106 mmol/L (98-107); CREATININE - SERUM 0.8 mg/dL (0.6-1.3); GLUCOSE 119 mg/dL (74-106); POTASSIUM - SERUM 4.2 mmol/L (3.5-5.1); SODIUM 141 mmol/L (136-145); UREA NITROGEN 16 mg/dL (7-18); eGFR NON AFRICAN AMERICAN > 90 mL/min (90-120)
[2018-07-31 13:28] VITALS: BP 140/97; BMI 27.0
--- NOTE | 2018-07-31 18:19 | NUR ---
PT RECEIVED. VSS. PT O2 VIA NC 3L O2 SAT 100% BEDSIDE REPORT RECEIVED FROM OR. PT DENIES NEEDS WILL CONTINUE TO MONITOR
[2018-07-31 18:21] VITALS: BP 143/84; Ht 179.1 cm; Wt 86.8 kg
--- NOTE | 2018-07-31 19:00 | NUR ---
RECIEVED PT FROM DAY SHIFT. IN BED IN LOW FOWLERS POSITION. ALERT AND ORIENTED X4. RESPIRATIONS EVEN AND UNLABORED. VS STABLE AND AFEBRILE. NO VISUAL CUES OF DISTRESS NOTED. O2 @ 3L NC. SAT 96%. DENIES ANY OTHER NEEDS AT THIS TIME. BED LOW. SIDE RAILS UP X2. CALL LIGHT IN REACH. WILL CONTINUE TO MONITOR.
[2018-08-01 01:00] VITALS: BP 149/105
[2018-08-01 02:00] VITALS: BP 141/101
[2018-08-01 03:00] VITALS: BP 140/95
[2018-08-01 04:00] VITALS: BP 145/101
[2018-08-01 05:00] VITALS: BP 138/89
[2018-08-01 06:00] VITALS: BP 145/96
--- NOTE | 2018-08-01 07:16 | NUR ---
REPORT RECEIVED. ASSESSMENT COMPLETE PER FLOW SHEET. VSS. NO NEW CHANGES WILL CONTINUE TO MONITOR
--- NOTE | 2018-08-01 08:50 | NUR ---
DR DIXON AT BEDSIDE STATED PT WOULD NOT HAVE ANY PRESCRIPTIONS R/T BEING WRITTEN BEFORE PROCEDURE AND FILLED BEFORE ADMISSION.
--- NOTE | 2018-08-01 09:17 | NUR ---
PT WALKED TO VEHICLE WITH BROTHER. LEFT WITH ALL BELONGINGS.
== END 2018-08-01 09:20 | disposition home or self-care (01) ==
LOC: D.OPS 10:04 → D.ICU 18:02 → D.OPS 08-01 09:20
PROVIDERS: Anesthesiology; ATTEND Neurological Surgery
DX: M50.123 Cervical disc disorder at C6-C7 level with radiculopathy (principal); M50.13 Cervical disc disorder with radiculopathy, cervicothoracic region; M25.78 Osteophyte, vertebrae; Z01.812 Encounter for preprocedural laboratory examination

== ENCOUNTER 2018-08-04 19:48 | Inpatient (IN) | payer MEDICAID ==
[~2018-08-04] VITALS: Ht 179.1 cm; Wt 89.3 kg
[2018-08-04 20:32] LABS: BASOPHILS 0.3 % (0-2); EOSINOPHILS 1.6 % (0-7); HEMATOCRIT 40.1 % (42.0-54.0); HEMOGLOBIN 13.1 g/dL (13.5-17.5); IMMATURE GRANULOCYTES 0.4 % (0-5); LYMPHOCYTES 18.9 % (15-50); MCH 32.9 pg (26.0-34.0); MCHC 32.7 g/dL (31.0-37.0); MCV 100.8 fL (80.0-100.0); MEAN PLATELET VOLUME 9.9 fL (7.4-10.4); MONOCYTES 11.2 % (2-11); NEUTROPHILS 67.6 % (40-80); PLATELET COUNT 212 10x3/uL (130-400); RBC 3.98 10x6/uL (4.20-6.10); RDW 11.9 % (11.5-14.5); WBC 7.9 10x3/uL (4.8-10.8)
--- NOTE | 2018-08-04 20:39 | NUR ---
PT PULSE OX 94% ON RA AND C/O SOB PT PLACED ON 2 L NC
[2018-08-04 20:42] LABS: APTT 35.6 SECONDS (22.8-39.4); INR 1.06 (0.85-1.17); PROTIME 13.3 SECONDS (11.6-15.0)
[2018-08-04 20:43] VITALS: BP 154/104
[2018-08-04 20:53] LABS: ALBUMIN 3.4 g/dL (3.4-5.0); ALKALINE PHOSPHATASE 138 U/L (46-116); ALT (SGPT) 17 U/L (10-68); BILIRUBIN - TOTAL 0.58 mg/dL (0.2-1.3); CALC OSMOLALITY 277 mosm/kg (275-300); CALCIUM 8.7 mg/dL (8.5-10.1); CARBON DIOXIDE 25.9 mmol/L (21.0-32.0); CHLORIDE - SERUM 101 mmol/L (98-107); CREATININE - SERUM 0.8 mg/dL (0.6-1.3); GLUCOSE 158 mg/dL (74-106); POTASSIUM - SERUM 3.5 mmol/L (3.5-5.1); SODIUM 138 mmol/L (136-145); UREA NITROGEN 11 mg/dL (7-18); eGFR NON AFRICAN AMERICAN > 90 mL/min (90-120)
[2018-08-04 21:04] LABS: CKMB 0.5 U/L (0.0-3.6); CREATINE KINASE 81 UL (21-232); MAGNESIUM - SERUM 1.9 mg/dL (1.8-2.4)
[2018-08-04 21:05] LABS: TROPONIN-I < 0.017 ng/mL (0.000-0.060)
--- NOTE | 2018-08-04 22:39 | NUR ---
PT TAKEN TO CT AT THIS TIME.
[2018-08-05] VITALS: BP 130/81
[2018-08-05 00:31] VITALS: BP 155/88
[2018-08-05 01:06] VITALS: BP 164/68; Ht 179.1 cm; Wt 89.3 kg
--- NOTE | 2018-08-05 01:31 | NUR ---
INTRODUCED SELF TO PATIENT, PATIENT IMMEDIATELY REQUESTED 2 SHERBERTS, A SANDWCH AND A COKE. EDUCATED PATIENT THAT HE WAS A DIABETIC AND COULD HAVE DIET COKE. PATIENT STATES PAIN 310 BUT IS MANAGEABLE UP UNTIL 10/10
[2018-08-05 04:00] VITALS: BP 131/88
[2018-08-05 05:40] LABS: BASOPHILS 0.3 % (0-2); EOSINOPHILS 3.7 % (0-7); HEMOGLOBIN 12.2 g/dL (13.5-17.5); IMMATURE GRANULOCYTES 0.3 % (0-5); LYMPHOCYTES 30.5 % (15-50); MCH 32.2 pg (26.0-34.0); MCHC 31.3 g/dL (31.0-37.0); MEAN PLATELET VOLUME 10.3 fL (7.4-10.4); MONOCYTES 11.9 % (2-11); NEUTROPHILS 53.3 % (40-80); PLATELET COUNT 209 10x3/uL (130-400); RBC 3.79 10x6/uL (4.20-6.10); RDW 12.1 % (11.5-14.5); WBC 7.5 10x3/uL (4.8-10.8)
[2018-08-05 05:44] LABS: MCV 102.9 fL (80.0-100.0)
[2018-08-05 05:53] LABS: CALC OSMOLALITY 280 mosm/kg (275-300); CALCIUM 8.6 mg/dL (8.5-10.1); CHLORIDE - SERUM 102 mmol/L (98-107); CREATININE - SERUM 0.8 mg/dL (0.6-1.3); GLUCOSE 159 mg/dL (74-106); POTASSIUM - SERUM 3.5 mmol/L (3.5-5.1); SODIUM 139 mmol/L (136-145); UREA NITROGEN 12 mg/dL (7-18); eGFR NON AFRICAN AMERICAN > 90 mL/min (90-120)
--- NOTE | 2018-08-05 09:01 | NUR ---
PT ALERT X 4. COURSE CRACKLES TO ALL [place], 3L O2 PER NC. TELEMETRY PLACED ON PT, RUNNING 97 SR. PT REPORTING PAIN OF 10/10 TO RIGHT SHOULDER RADIATING DOWN RIGHT ARM, MEDICATED PER ORDERS, WILL MONITOR. BED LOW, CALL LIGHT IN REACH. NO OTHER NEEDS AT THIS TIME.
[2018-08-05 09:57] VITALS: BP 145/89
[2018-08-05 20:00] VITALS: BP 132/91
--- NOTE | 2018-08-05 20:30 | NUR ---
INITIAL ASSESSMENT COMPLETED - PT A/O X4, STATES PAIN 8/10 IN R SHOULDER. ADMINISTERED PRESCRIBED ANALGESIC PER AUG. PIV IN L FA SL, PATENT, C/D/I. VSS ON 3L OF O2 VIA NC. STACH NOTED VIA GREASE AND TALLOW PUMPER. INCISION AT COLLAR BONE WNL. PT COUGHING UP WHITE, THICK SPUTUM. NO OTHER NEEDS NOTED AT THIS TIME. CL IN REACH, SR UP X2, BED IN LOWEST POSITION.
--- NOTE | 2018-08-06 02:45 | NUR ---
TO PT ROOM WITH RT CONNOR. ASKED PT IF HE HAD SMOKED IN THE ROOM AND HE STATED "YEAH, I SMOKED ONE IN THE BATHROOM." DISCUSSED SAFETY HAZARDS AND CONSEQUENCES OF SMOKING AND PT VERBALIZED UNDERSTANDING AND STATED THAT "I WON'T DO IT AGAIN." NOTIFIED VAHE, ZINC PLATER, AND WILL NOTIFY SECURITY IF PT DOES IT AGAIN PER VAHE, OR IF I SEE SECURITY, PER VAHE.
[2018-08-06 04:00] VITALS: BP 147/91
--- NOTE | 2018-08-06 04:01 | NUR ---
RESUMING PT CARE - PT RESTING IN BED WITH EYES CLOSED. RR EVEN AND UL ON 3L OF O2 VIA NC. NO S/S OF DISTRESS. NO NEEDS AT THIS TIME. WCTM
[2018-08-06 09:34] VITALS: BP 132/85
[2018-08-06 12:13] VITALS: BP 140/79
[2018-08-06 15:46] LABS: BASOPHILS 0.3 % (0-2); EOSINOPHILS 4.6 % (0-7); HEMATOCRIT 37.1 % (42.0-54.0); HEMOGLOBIN 11.6 g/dL (13.5-17.5); IMMATURE GRANULOCYTES 0.4 % (0-5); LYMPHOCYTES 28.4 % (15-50); MCH 32.4 pg (26.0-34.0); MCHC 31.3 g/dL (31.0-37.0); MCV 103.6 fL (80.0-100.0); MEAN PLATELET VOLUME 9.7 fL (7.4-10.4); MONOCYTES 13.4 % (2-11); NEUTROPHILS 52.9 % (40-80); PLATELET COUNT 168 10x3/uL (130-400); RBC 3.58 10x6/uL (4.20-6.10); WBC 6.8 10x3/uL (4.8-10.8)
[2018-08-06 16:30] LABS: CALCIUM 8.1 mg/dL (8.5-10.1); CKMB 0.4 U/L (0.0-3.6); CREATINE KINASE 15 UL (21-232); GLUCOSE 115 mg/dL (74-106); TROPONIN-I 0.052 ng/mL (0.000-0.060); UREA NITROGEN 14 mg/dL (7-18)
[2018-08-06 16:37] LABS: CALC OSMOLALITY 284 mosm/kg (275-300); CHLORIDE - SERUM 105 mmol/L (98-107); SODIUM 142 mmol/L (136-145)
[2018-08-06 16:39] LABS: CREATININE - SERUM 1.1 mg/dL (0.6-1.3)
[2018-08-06 16:40] LABS: CARBON DIOXIDE 16.1 mmol/L (21.0-32.0); eGFR NON AFRICAN AMERICAN 72 mL/min (90-120)
[2018-08-06 17:06] VITALS: BP 132/90
[2018-08-06 20:00] VITALS: BP 137/89
--- NOTE | 2018-08-06 20:00 | NUR ---
INITIAL ASSESSMENT COMPLETED - PT SITTING UP IN BED AND STATES PAIN 8. ADMINISTERED PRESCRIBED ANALGESIC PER MD ORDER. VSS. RR EVEN AND UL ON 3L OF O2 VIA NC. DENIES ANY NEEDS AT THIS TIME. L FA PIV PATENT, C/D/I. WCTM AND FOLLOW POC.
[2018-08-06 22:05] LABS: CKMB 0.7 U/L (0.0-3.6); CREATINE KINASE 46 UL (21-232); TROPONIN-I < 0.017 ng/mL (0.000-0.060)
--- NOTE | 2018-08-06 23:30 | NUR ---
PT STATES PAIN 5/10. ADMINISTERED PRESCRIBED ANALGESIC PER MD ORDER. VSS. NO OTHER NEEDS AT THIS TIME. CL IN REACH, SR UP X2, BED IN LOWEST POSITION.
[2018-08-07] VITALS: BP 140/86
[2018-08-07 04:00] VITALS: BP 138/82
[2018-08-07 04:23] LABS: BASOPHILS 0.4 % (0-2); EOSINOPHILS 5.1 % (0-7); HEMATOCRIT 37.6 % (42.0-54.0); HEMOGLOBIN 11.8 g/dL (13.5-17.5); IMMATURE GRANULOCYTES 0.3 % (0-5); LYMPHOCYTES 34.1 % (15-50); MCH 32.4 pg (26.0-34.0); MCHC 31.4 g/dL (31.0-37.0); MCV 103.3 fL (80.0-100.0); MEAN PLATELET VOLUME 10.2 fL (7.4-10.4); MONOCYTES 11.6 % (2-11); NEUTROPHILS 48.5 % (40-80); PLATELET COUNT 189 10x3/uL (130-400); RBC 3.64 10x6/uL (4.20-6.10); RDW 11.9 % (11.5-14.5)
[2018-08-07 04:53] LABS: CALC OSMOLALITY 282 mosm/kg (275-300); CALCIUM 8.4 mg/dL (8.5-10.1); CHLORIDE - SERUM 103 mmol/L (98-107); CKMB 1.1 U/L (0.0-3.6); CREATINE KINASE 42 UL (21-232); GLUCOSE 144 mg/dL (74-106); MAGNESIUM - SERUM 1.9 mg/dL (1.8-2.4); SODIUM 140 mmol/L (136-145); UREA NITROGEN 14 mg/dL (7-18)
[2018-08-07 04:55] LABS: CARBON DIOXIDE 30.1 mmol/L (21.0-32.0); CREATININE - SERUM 0.8 mg/dL (0.6-1.3); TROPONIN-I < 0.017 ng/mL (0.000-0.060); eGFR NON AFRICAN AMERICAN > 90 mL/min (90-120)
--- NOTE | 2018-08-07 07:30 | NUR ---
AM ROUNDS COMPLETED. INTRODUCED MYSELF TO PT PRIMARY RN FOR TODAYS SHIFT. PT IS STANDING UP IN HIS ROOM RESTING QUIETLY. SHIFT ASSESSMENT COMPLETED. PT DENIES ANY CURRENT PAIN OR NEEDS AND STATES HE SLEPT WELL OVERALL. WILL REVIEW CHART AND ORDERS AND CPOC. PT VOICED THANKS AND IS WAITING ON BREAKFAST.
[2018-08-07 08:50] VITALS: BP 147/88
--- NOTE | 2018-08-07 10:45 | NUR ---
PT SITTING UP IN BED RESTING QUIETLY. PT STATES HE IS BREATHING WELL AND DENIES ANY CURRENT PAIN OR NEEDS. CL IN REACH, BED IN LOWEST, SIDE RAILS X2. WILL CTM.
--- NOTE | 2018-08-07 12:25 | NUR ---
PT C/O PAIN IN HIS BACK AND LUNGS AGAIN REQUESTING AND PROVIDED WITH PRN NORCO. PT IS GOING TO EAT LUNCH AND THEN WANTS TO GET IN SHOWER. SUPPLIES PROVIDED. NO FURTHER NEEDS AT THIS TIME. WILL CTM.
[2018-08-07 12:40] VITALS: BP 147/94
--- NOTE | 2018-08-07 14:32 | NUR ---
PT NOT IN HIS ROOM. UNSURE WHERE HE WENT OR WHY OR FOR HOW LONG. WILL CHECK UNIT AND CTM. PT IS VERY AMBULATORY AND HAS BEEN UP AND DOWN CONSTANTLY HOWEVER HE NORMALLY NOTIFIES ME OR RIDE MECHANIC IF HE IS GOING FOR A WALK. WILL CTM.
--- NOTE | 2018-08-07 14:50 | NUR ---
PT BACK IN HIS ROOM AND STATES HE WAS JUST AMBULATING GETTING FRESH AIR. ENCOURAGED HIM TO MAKE SURE HE NOTIFIES ANYONE OR SOMEONE PRIOR TO LEAVING OUR FLOOR. PT VERBALIZED UNDERSTANDING. NO CURRENT NEEDS. WILL CTM.
[2018-08-07] MEDS ORDERED: ELIQUIS5 MG PO (14:59)
[2018-08-07 16:42] VITALS: BP 152/89
--- NOTE | 2018-08-07 16:45 | NUR ---
FSBS 154 PT REFUSING ANY COVERAGE UNLESS HE IS ABOVE 200. PT SITTING UP IN BED RESTING QUIETLY WAITING ON DINNER. CL IN REACH, BED IN LOWEST, SIDE RAILS X2. NO CURRENT NEEDS. WILL CTM.
--- NOTE | 2018-08-07 18:18 | NUR ---
PT GOING TO BE DISCHARGED. 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 WILL HAVE HIM TRY TO FIND A LENDING ADVISOR THEN GO OVER DISCHARGE PAPERS.
[2018-08-07 20:00] VITALS: BP 153/104
--- NOTE | 2018-08-07 21:15 | NUR ---
INITIAL ROUNDS COMPLETED - RECIEVED REPORT FROM SUAD WALTERS. STATES PT IS WANTING TO STAY THE NIGHT HE GOT HIS DILAUDID AROUND 1630 AND IS STILL IN PAIN, WELL HE IS DRIVING HIMSELF HOME. SPOKE WITH PT AND PT CONCURRED WITH THIS STATEMENT. EDUCATED PT THAT HE HAS BEEN DC'D BY AND THAT INSURANCE MIGHT NOT PAY FOR THE REST OF THE STAY. PT VERBALIZED UNDERSTANDING AND REQUESTED DILAUDID FOR PAIN OF 10/10 IN R NECK AND SHOULDER. ADMINISTERED PER AUG. NOTIFIED VU BARDALES OF PT WANTING TO STAY. WCTM AND FOLLOW POC. CL IN REACH, SR UP X2, BED IN LOWEST POSITION.
--- NOTE | 2018-08-07 21:54 | NUR ---
PT UP TO NURSES STATION AFTER DIRECTOR OF ENTERTAINMENT TO ROOM. PT STATES "GET MY PAPERS READY, I'M LEAVING."
--- NOTE | 2018-08-07 22:40 | NUR ---
PT STATES HE IS "NOT GOING TO SIGN ANYTHING UNTIL I GET A TABLEAU ANALYST. I AM GOING TO [facility] TOMORROW AND THEN I WILL BE BACK HERE AFTER I GET A TABLEAU ANALYST." REFUSED TO SIGN PAPERWORK AND WROTE A PERSONAL STATEMENT. SPOKE WITH JEFFY TURK AGAIN AND JEFFY APOLOGIZED FOR COMING ACROSS "RUDE" PT STATES.
[2018-08-08 09:18] LABS: PSA - % FREE 4.3 % (()); PSA - FREE 0.03 ng/mL; PSA - TOTAL 0.7 ng/mL (0.0-4.0)
[2018-08-08 10:22] LABS: FOLATE (FOLIC ACID) - SERUM 12.2 ng/mL (>3.0)
[2018-08-09 11:10] LABS: PROTEIN S - FREE 71 % (57-157); PROTEIN S - FUNCTIONAL 67 % (63-140); PROTEIN S - TOTAL 88 % (60-150)
--- NOTE | 2018-08-11 11:38 | MORECARE ---
CASE MANAGEMENT DISCHARGE SUMMARY PATIENT: ZELDA MANCERA UNIT: [id number] ADM DATE: 08/04/18 AGE: 62 : 59 SEX: M ROOM/BED: D.2133 AUTHOR: ANGELES TAO PHYSICIAN: REFERRING PHYSICIAN: NELLI ALATORRE MD DATE OF SERVICE: 08/11/18 Discharge Plan Patient Name: [facility] [facility] 1955 Planned Disposition: Home Anticipated Discharge Date: 08/07/18 Discharge Date: 08/07/2018 Expected LOS: 3 Initial Reviewer: [email or web address] Initial Review Date: 08/11/2018 Generated: 08/11/18 12:38 pm Patient Name: ZELDA MANCERA Page [id number] at 1138 All edits/amendments must be made on the electronic document DICTATION DATE: 08/11/18 1137 GRIPPER INSTALLER: CATHY 08/11/18 1137 RPT#: [id number] DC DATE:08/07/18 STATUS: DIS IN [facility] [address] [place] [address] END OF REPORT
[2018-08-11 12:13] LABS: PROTEIN C - ANTIGEN 138 % (60-150); PROTEIN C - FUNCTIONAL 173 % (73-180)
== END 2018-08-07 23:58 | disposition home or self-care (01) | DRG 176 ==
LOC: D.ER 19:48 → D.EDHOLD 23:54 → D.M2 23:54
PROVIDERS: Family Medicine; Internal Medicine Hematology & Oncology; ADMIT Emergency Medicine; ATTEND Emergency Medicine
DX: I26.99 Other pulmonary embolism without acute cor pulmonale (principal); F17.213 Nicotine dependence, cigarettes, with withdrawal; E11.65 Type 2 diabetes mellitus with hyperglycemia; M54.9 Dorsalgia, unspecified; G89.29 Other chronic pain; M54.10 Radiculopathy, site unspecified; R07.81 Pleurodynia